=== PATIENT | female | born 1990 | race Caucasian/White ===

== ENCOUNTER 2016-07-31 16:58 | Emergency (ER) | payer OTHER ==
[~2016-07-31] VITALS: Ht 160 cm; Wt 86.2 kg
[~2016-07-31 16:58] MED LIST: PERCOCET 325 MG1 TA2 PO; REGLAN10 MG PO; TRAZODONE HCL50 M1 PO
--- NOTE | 2016-07-31 17:25 | ED GI/GU/ABDOMINAL COMPLAINT ---
History of Present Illness General Chief Complaint: Abdominal Pain/Flank Pain Stated Complaint: RECTAL BLEEDING, ABD/FLANK PAIN Source: patient, old records Exam Limitations: no limitations Vital Signs & Intake/Output Vital Signs & Intake/Output Vital Signs Date Time Temp Pulse Resp B/P Pulse O2 O2 Flow FiO2 Ox Delivery Rate 07/31 2208 97.8 98 17 118/71 100 Room Air 07/31 2022 Room Air 07/31 1942 97.6 100 16 114/74 99 Room Air 07/31 170 97.8 106 16 128/85 99 Room Air Allergies Coded Allergies: Sulfa (Sulfonamide Antibiotics) (HIVES 07/31/16) sulfamethoxazole (From BACTRIM) (HIVES 07/31/16) tranexamic acid (From LYSTEDA) (VAGINAL SWELLING 07/31/16) trimethoprim (From BACTRIM) (HIVES 07/31/16) Reconcile Medications Dextroamphetamine/Amphetamine (Adderall XR 30 MG Capsule) 30 MG CAP.ER.24H 1 CAP PO QAM ADD (Reported) Hydroxyzine Pamoate 50 MG CAPSULE 2 CAP PO QPM SLEEP (Reported) Triage Note: PT STATES SHE HAS HAD RECTAL BLEEDING SINCE THURSDAY. PT REPORTS HAVING BACK AND STOMACH PAIN. PT WENT TO [facility] ON THURSDAY BUT THEY TOLD HER THAT THERE WAS NOT ENOUGH BLOOD TO ADMIT HER. Triage Nurses Notes Reviewed? yes ? n Is pt currently ? No HPI: Patient is a 26-year-old female presents complaining of rectal bleeding, abdominal pain, low back pain. Patient reports symptoms onset on Thursday. Patient was seen at [facility], had blood work and a rectal exam and was instructed to follow up with GI. Patient called a senior sharepoint architect in [place] but has not received a call back from them. Patient reports that the pain is a cramping pain is currently mild, has been severe. Pain worsens after eating. Associated nausea, no vomiting. Patient has noticed that she's been passing blood clots per rectum also. Patient contacted Dr. Brown her current senior sharepoint architect and was prescribed medication, she does not know the name of it, but did not start taking it because she does not want to mask her symptoms. Patient denies fevers or chills. (GERI GREEN,MAMTA) Past History Travel History Traveled to [place] past 21 day No Medical History Any Pertinent Medical History? see below for history Neurological: NONE EENT: NONE Cardiovascular: NONE Respiratory: NONE Gastrointestinal: NONE Hepatic: NONE Renal: KIDNEY STONES, BENIGN KIDNEY CYST Musculoskeletal: NONE Psychiatric: NONE Endocrine: NONE Blood Disorders: NONE Surgical History Surgical History: non-contributory Psychosocial History What is your primary language Romanian Tobacco Use: Never used ETOH Use: denies use Illicit Drug Use: denies illicit drug use Family History Hx Contributory? No (MAMTA GARRETT) Review of Systems Review of Systems Constitutional: Denies: chills, fever. EENTM: Reports: no symptoms. Respiratory: Reports: no symptoms. Cardiovascular: Reports: no symptoms. GI: Reports: see HPI. Genitourinary: Reports: no symptoms. Musculoskeletal: Reports: back pain. Skin: Reports: no symptoms. Neurological/Psychological: Reports: no symptoms. Hematologic/Endocrine: Reports: see HPI. Immunologic/Allergic: Reports: no symptoms. (MAMTA GARRETT) Physical Exam Physical Exam General Appearance: well developed/nourished, alert, awake Head: atraumatic, normal appearance Eyes: Bilateral: normal appearance, PERRL, EOMI. Ears, Nose, Throat, Mouth: hearing grossly normal, moist mucous membrane Neck: normal inspection, supple, full range of motion Respiratory: normal breath sounds, chest non-tender, no respiratory distress, lungs clear Cardiovascular: regular rate/rhythm Gastrointestinal: normal bowel sounds, soft, MILD MIDABDOMINAL TENDERNESS. nEGATIVE mCbURNEY'S POINT TENDERNESS, NEGATIVE RIGHT UPPER QUADRANT TENDERNESS. nO REBOUND, RIGIDITY, GUARDING Rectal: performed by Oriana Dwons PA-C: brown stool with a small amount of bright red blood. No observable or palpable hemorrhoids. Back: normal inspection, normal range of motion Extremities: normal range of motion Neurologic/Psych: no motor/sensory deficits, awake, alert, oriented x 3, normal gait, normal mood/affect Skin: intact, normal color, warm/dry Core Measures ACS in differential dx? No Severe Sepsis Present: No Septic Shock Present: No (MAMTA GARRETT) Progress Differential Diagnosis: colon cancer, diverticulitis, gastritis, hernia, hemorrhoids, ischemic bowel, inflamm bowel dis, PUD/GERD, irritable bowel syndrome, hemorrhoidal bleeding Plan of Care: Orders Procedure Date/time Status URINE 07/31 1732 Complete URINALYSIS 02/16 1733 Complete COMPREHENSIVE METABOLIC PANEL 07/31 1732 Complete CBC WITHOUT DIFFERENTIAL 07/31 1732 Complete Laboratory Tests 07/31/16 1842: Anion Gap 10, Estimated GFR > 60, BUN/Creatinine Ratio 18.8, Glucose 100 H, Calcium 9.6, Total Bilirubin 0.7, AST 23, ALT 30, Alkaline Phosphatase 63, Total Protein 7.4, Albumin 4.3, Globulin 3.1, Albumin/Globulin Ratio 1.4 07/31/16 1826: CBC w Diff NO MAN DIFF REQ, RBC 4.20, MCV 85.1, MCH 28.4, RDW 13.0, MPV 8.7, Gran % 50.8, Lymphocytes % 40.5, Monocytes % 8.1, Eosinophils % 0.3, Basophils % 0.3, Absolute Granulocytes 3.3, Absolute Lymphocytes 2.7, Absolute Monocytes 0.5 , Absolute Eosinophils 0, Absolute Basophils 0, PUBS MCHC 33.3 07/31/16 1738: Urinalysis MOD H, Urine Color YEL, Urine Clarity HAZY H, Urine pH 6.0, Ur Specific [place] >= 1.030, Urine Protein NEG, Urine Ketones TRACE H, Urine Nitrite NEG, Urine Bilirubin NEG, Urine Urobilinogen 0.2, Ur Leukocyte Esterase NEG, Ur Microscopic SEDIMENT EXAMINED, Urine RBC 1-3, Urine WBC 1-3 H, Ur Epithelial Cells MANY H, Urine Mucus MOD H, Urine Hemoglobin SMALL H, Urine Glucose NEG, Urine Test NEGATIVE Patient requested a female practitioner performing her rectal exam. Discussed with Richy Downs PA-C who will perform the rectal exam. 07/31/2016 7:25:47 PM: Patient resting comfortably. Reports continued nausea, declined anti-medic. Discussed results of labs with patient. Patient's hemoglobin 3 days ago was 12.5, today is 11.9. Patient is tolerating oral contrast appropriately. Awaiting CT scan. Discussed with Dr. Heredia: Can have patient follow up in the office. The patient does not want follow-up with Dr. Brown, then he can see the patient likely next week or if Dr. Apodaca is available may be able to be seen in the office tomorrow or early next week. Have patient start taking the Dicyclomine that Dr. Brown prescribed. Plan discussed with patient. Patient afebrile, nontoxic appearing, no peritoneal signs on exam. Appears stable for discharge with close GI follow up. (MAMTA GARRETT) Initial ED EKG: none (MAMTA GARRETT) Departure Departure Time of Disposition: 2203 Disposition: HOME OR SELF CARE Condition: Stable Clinical Impression Primary Impression: Colitis Referrals: ROMA RONQUILLO (PCP/Family) HOSSEIN HANSEN,LAURIE Russell Additional Instructions: Take the Dicyclomine that Dr. Brown called in to the [facility]. Clear liquid diet for the next 24-48 hours. Follow up with Dr. Heredia or Dr. Apodaca tomorrow or early next week for further evaluation. Return to the ER if fevers, pain uncontrollable or worsening of symptoms. Departure Forms: Customer Survey General Discharge Information (MAMTA GARRETT) PA/FRICKERTRON CHECKER Co-Sign Statement Statement: ED Attending supervision documentation- [] I saw and evaluated the patient. I have also reviewed all the pertinent lab results and diagnostic results. I agree with the findings and the plan of care as documented in the PA's/FRICKERTRON CHECKER's documentation. x I have reviewed the ED Record and agree with the PA's/FRICKERTRON CHECKER's documentation. [] Additions or exceptions (if any) to the PAs/FRICKERTRON CHECKER's note and plan are summarized below: [] (NAZARIO HANSEN,AMELIA)
[2016-07-31 19:01] LABS: ABSOLUTE BASOPHIL COUNT 0 /CUMM (0.0-0.2); ABSOLUTE EOSINOPHIL COUNT 0 /CUMM (0.0-0.7); ABSOLUTE GRANULOCYTE CT 3.3 /CUMM (1.4-6.5); ABSOLUTE LYMPH COUNT 2.7 /CUMM (1.2-3.4); ABSOLUTE MONOCYTE COUNT 0.5 /CUMM (0.10-0.60); BASOPHIL % 0.3 % (0.0-2.0); EOSINOPHIL % 0.3 % (0-5); GRANULOCYTE % 50.8 % (42.2-75.2); HEMATOCRIT 35.8 % (37-47); MEAN CORPUSCULAR HGB 28.4 PG (27.0-31.0); MEAN CORPUSCULAR HGB CONC 33.3 G/DL (33.0-37.0); MEAN CORPUSCULAR VOLUME 85.1 FL (81.0-99.0); MEAN PLATELET VOLUME 8.7 FL (7.4-10.4); PLATELET COUNT 243 /CUMM (130-400); WHITE BLOOD CELL COUNT 6.6 /CUMM (4.8-10.8)
[2016-07-31] MEDS ORDERED: ADDERALL XR 3030 MG PO (21:18)
[2016-07-31] MEDS ORDERED: HYDROXYZINE PAM50 M1 PO (21:19)
--- NOTE | 2016-07-31 21:36 | CT SCAN REPORT ---
EXAMINATION: CT ABDOMEN AND PELVIS WITH CONTRAST CLINICAL INFORMATION: 26-year-old female patient with abdominal pain and rectal bleeding. COMPARISON: CT of the abdomen and pelvis on 07/08/2014. (Question mesenteric adenitis). TECHNIQUE: Multidetector volumetric imaging was performed of the abdomen and pelvis following the ingestion of oral meal and the IV administration of 95 mL of Optiray 320 intravenous contrast. Sagittal and coronal reformatted images were obtained on the technologist's workstation. DLP: 666 mGy-cm FINDINGS: The abdomen is relatively gasless. The stomach is distended by oral contrast. LUNG BASES: The visualized lung bases are unremarkable. LIVER, GALLBLADDER, AND BILIARY TREE: The liver is normal in size, shape, and attenuation. The bile ducts are normal. The gallbladder has a postprandial appearance. PANCREAS: Unremarkable. SPLEEN: Unremarkable. ADRENAL GLANDS: Unremarkable. KIDNEYS AND URETERS: The kidneys are normal in size, shape, and attenuation. No hydronephrosis, hydroureter, or calculi seen. No perinephric stranding. 2 tiny hypodense nodules are seen in the lower pole of the left kidney. These most likely represent small angiomyolipomas. BLADDER: Unremarkable. GASTROINTESTINAL TRACT: The stomach is dilated with oral contrast and ingested food. A small air bubble is seen near the base of the duodenal cap. This is not felt to be an ulcer since there is no surrounding inflammatory reaction. This is felt to represent air and oral contrast in the fornix of the duodenal bulb. The small intestine and appendix are normal. Most of the colon except for the cecum is collapsed. No pericolonic inflammatory reaction is seen. The only finding is that of mucosal enhancement of the colon from rectum to ascending colon in a continuous fashion. In the involved segments, there is prominent vasa rectae. Given this distribution and appearance, ulcerative colitis is a distinct possibility. ABDOMINAL WALL: No significant hernia is appreciated. LYMPH NODES: A number of mesenteric lymph nodes are identified particularly in the right lower quadrant as previously mentioned. VASCULAR: Unremarkable. PELVIC VISCERA: The anteverted uterus is normal in size and shape. The ovaries are normal. There is no free fluid. OSSEOUS STRUCTURES: There are 6 non rib bearing vertebral segments. Bony fusion involves the vertebral bodies at L3-L5. There is degenerative disc disease at Lc-S1. In addition, there is evidence of bilateral sacroiliitis more advanced on the left than right. IMPRESSION: 1. Findings involving the colon in a continuous fashion from rectum to the ascending colon consistent with ulcerative colitis. 2. Bilateral sacroiliitis. 3. No hint of sclerosing cholangitis.
[2016-07-31 22:09] VITALS: BP 118/71
== END 2016-07-31 22:24 ==
LOC: ERH 16:58
PROVIDERS: Physician Assistant
DX: K52.9 Noninfective gastroenteritis and colitis, unspecified (principal)
CPT/HCPCS: 74177; 81001; 81025